=== PATIENT | male | born 1990 ===

== ENCOUNTER 2022-08-27 07:12 | Emergency (ER) | payer BC | END 2022-08-27 07:50 | disposition home or self-care (01) | LOC: LL.ED 07:12 | DX: K04.7 Periapical abscess without sinus (principal); F17.210 Nicotine dependence, cigarettes, uncomplicated; Z79.899 Other long term (current) drug therapy; Z79.84 Long term (current) use of oral hypoglycemic drugs | CPT/HCPCS: 99282; 99283 ==